=== PATIENT | female | born 1935 | race Caucasian/White ===

== ENCOUNTER → 2016-10-19 | Outpatient (CLI) | payer OTHER ==
[~2016-10-19] MED LIST: ACET-1138 PO; ACET-24 PO; ASPEC81 PO; ATEN-175 PO; CRS/10 PO; FLUT0.15 NAE; ONDA8TAB6 PO; OXYC-106 PO; OXYSR10 PO; PREG100C PO; RXC5 PO; TRIA37.5 PO
[2016-10-19 15:14] LABS: PARTIAL THROMBOPLASTIN RATIO 1.1; PROTHROMBIN TIME (PATIENT) 10.2 SECONDS (9.0-12.0)
[2016-10-20 05:55] LABS: ESTIMATED AVERAGE GLUCOSE 123 mg/dl; HA1C FLAG Normal (Normal)
--- NOTE | 2016-10-29 08:11 | CODING QUERY MEDICAL NECESSITY ---
CQSUPPORTING DIAGNOSIS NEEDED A supporting diagnosis is required for the test/procedure performed on this patient in order for us to be reimbursed by the patient's insurance. Please provide a supporting diagnosis for the following test/procedure listed below next to the test name along with your signature. *If there is no additional diagnosis for this patient that would support the following test/procedure please document that below next to the test/procedure. Test(s)/Procedure(s) that require a supporting diagnosis: DOS 10/19/16 GLYCATED HEMOGLOBIN TEST PROTHROMBIN TIME TEST PTT TEST Provider Signature: Date: Thank you Trista Llanes [facility] Information Management Once completed, please kindly fax back to [phone] For questions please call [phone]
== END | disposition home or self-care (01) ==
LOC: C.LAB 12:21
PROVIDERS: ATTEND Orthopaedic Surgery Sports Medicine
DX: Z01.818 Encounter for other preprocedural examination (principal)

== ENCOUNTER 2016-11-04 04:46 | Inpatient (IN) | payer OTHER ==
[2016-10-12 16:19] VITALS: BMI 24.0
--- NOTE | 2016-11-03 18:55 | HISTORY & PHYSICAL EXAMINATION ---
DATE OF ADMISSION: 11/04/2016 CHIEF COMPLAINT: Chronic left hip pain. HISTORY OF PRESENT ILLNESS: This is a 80-year-old female patient of Dr. Pineda'mirna complaining of chronic left hip pain, longstanding, now progressively getting worse. The patient has been diagnosed with end-stage osteoarthritis per clinical and radiographic exams. She has failed conservative treatment including anti-inflammatories and the use of a cane. She has increased pain with weightbearing activities and her pain does interfere with her activities of daily living. PAST MEDICAL HISTORY: Hypertension, hypercholesterolemia, carpal tunnel syndrome, osteoarthritis, spine problems, sciatica. SOCIAL HISTORY: She was a lifelong smoker, quit in 2007. She is a nonalcohol user. PAST SURGICAL HISTORY: Back surgery x3, hip replacement, hysterectomy, goiter removal, wrist surgery bilaterally. FAMILY HISTORY: Noncontributory. REVIEW OF SYSTEMS: The patient complains of chronic left hip pain. Otherwise, denies any shortness of breath, chest pain, nausea, vomiting or any other joint complaints. MEDICATIONS: Include triamterene/hydrochlorothiazide 37.5/25 daily, atenolol 100 mg daily, Crestor 20 mg daily, Lyrica 100 mg b.i.d., and hydrocodone as needed. ALLERGIES: LATEX. PHYSICAL EXAMINATION: GENERAL: Well-developed, well-nourished 80-year-old female in no acute distress. She is alert and oriented x3 and pleasant. HEENT: Normocephalic, atraumatic. Extraocular motions are intact. Pupils are equal and reactive to light. HEART: Regular rate and rhythm, no murmurs. LUNGS: Clear. ABDOMEN: Soft, nontender, bowel sounds present. EXTREMITIES: Left hip reveals passive range of motion to be painful with log rolling and internal and external rotation at 90/90. She has no flexion contracture. She has 5/5 strength with pain. NEUROLOGIC: Neurovascularly, she is intact in her left lower extremity. DIAGNOSES: Left hip end-stage osteoarthritis with a history of hypertension, hypercholesterolemia, carpal tunnel syndrome, osteoarthritis, spine problems, and sciatica. PLAN: The patient was advised of her diagnosis. Indications, risks, benefits, and postop course have all been reviewed. The patient wishes to proceed with a left total hip arthroplasty. Necessary consent forms, preoperative testing and clearances will be obtained.
[2016-11-04] VITALS (8 sets, daily range): BP systolic 115–178; BP diastolic 63–75; PULSE 55–75; TEMP 36.4–36.7; O2SAT 93–100; Ht 152.4 cm; Wt 56.4 kg
[~2016-11-04] VITALS: Ht 152.4 cm; Wt 56.4 kg
[~2016-11-04 04:46] MED LIST changes: -ACET-24 PO; -ASPEC81 PO; -ONDA8TAB6 PO; -OXYSR10 PO; -RXC5 PO
[2016-11-04] MEDS ORDERED: CeleBREX 200 MG CAP PO SCH (06:00)
[2016-11-04] MEDS ORDERED: LACTATED RINGER'S 1000ML 1,000 ML IV SCH ×2 (06:00)
[2016-11-04] MEDS ORDERED: METOCLOPRAMIDE HCL 10 MG TAB PO SCH (06:00)
[2016-11-04] MEDS ORDERED: LACTATED RINGER'S 1000ML 500 ML IV ONE (06:00)
[2016-11-04] MEDS ORDERED: ACETAMINOPHEN 500 MG TAB PO SCH (06:00)
[2016-11-04] MEDS ORDERED: CEFAZOLIN 1000MG/55 ML D5W 55 ML IV SCH (06:00)
[2016-11-04] MEDS ORDERED: GABAPENTIN 300 MG CAP PO SCH (06:00)
[2016-11-04] MEDS ORDERED: DEXAMETHASONE 4 MG TAB PO SCH (06:00)
[2016-11-04] MEDS ORDERED: FAMOTIDINE 20 MG TAB PO SCH (06:00)
[2016-11-04] MEDS ORDERED: ROPIVACAINE 5MG/ML 30 ML 150 MG, BUPIVACAINE/EPINEPHR 0.5% MPF 30 ML, KETOROLAC TROMETH... INFIL SCH ×6 (06:00)
[2016-11-04] MEDS ORDERED: BUPIVACAINE 0.5 % 5 MG/1 ML PF 10ML VIAL ONE (06:29)
[2016-11-04] MEDS ORDERED: POVIDONE-IODINE OP SOLN 30 ML BTL ONE (06:30)
[2016-11-04] MEDS ORDERED: BACITRACIN 50000 UNIT VIAL ONE (06:30)
[2016-11-04] MEDS ORDERED: ORTHO JOINT ANESTHETIC ONE (06:30)
[2016-11-04] MEDS ORDERED: MIDAZOLAM HCL 1 MG/ML 2ML VIAL ONE (06:37)
[2016-11-04] MEDS ORDERED: FENTANYL CITRATE INJ 50 MCG/1 ML 2 ML VIAL ONE (06:37)
--- NOTE | 2016-11-04 07:16 | History & Physical Bridge Note ---
H&P Re-Evaluation Bridge Note: I have examined the patient, reviewed the History & Physical and in the interval since the performance of the History & Physical I have noted the following changes of clinical significance: No changes noted
[2016-11-04] MEDS: TRANEXAMIC ACID INJ 1,000 MG in SODIUM CHLORIDE 0.9% 100ML 100 ML IV SCH ×2 (07:17→11:22)
[2016-11-04] MEDS ORDERED: HYDROmorphone INJ 2 MG/ML SYR/VIAL IV PRN (07:30)
[2016-11-04] MEDS ORDERED: ATROPINE SULFATE 0.1 MG/ML 5ML SYR IV PRN (07:30)
[2016-11-04] MEDS ORDERED: EpHEDrine SULFATE INJ 50 MG/ML AMP IV PRN (07:30)
[2016-11-04] MEDS ORDERED: ONDANSETRON INJ 2 MG/ML 2 ML VIAL IV PRN ×2 (07:30→10:15)
[2016-11-04] MEDS ORDERED: PHENYLEPHRINE 100MCG/ML 5ML SYR IV PRN (07:30)
[2016-11-04] MEDS ORDERED: PROPOFOL IV EMULSION 10 MG/ML 20 ML VIAL IV ONE (08:33)
[2016-11-04] MEDS ORDERED: LIDOCAINE HCL 2% 2 ML VIAL (20MG/ML) ONE (08:33)
--- NOTE | 2016-11-04 09:46 | [facility] Post Operative Brief Note ---
Immediate Operative Summary Operative Date Nov 04, 2016. 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
[2016-11-04] MEDS ORDERED: BISACODYL 10 MG SUPP PR PRN (10:15)
[2016-11-04] MEDS ORDERED: SOD PHOSPHATE/SOD BIPHOSPHATE ENEMA 132 ML BTL PR PRN (10:15)
[2016-11-04] MEDS ORDERED: FLUTICASONE PROPIONATE NA SPR 16 GM BTL NAE PRN (10:15)
[2016-11-04] MEDS ORDERED: ZOLPIDEM TARTRATE 5 MG TAB PO PRN (10:15)
[2016-11-04] MEDS ORDERED: MAGNESIUM HYDROXIDE SUSP 30 ML UDC PO PRN (10:15)
[2016-11-04] MEDS ORDERED: MoRPHine SULFATE 2 MG/ML CARP IV PRN (10:15)
--- NOTE | 2016-11-04 10:47 | DIAGNOSTIC IMAGING REPORT ---
AP PELVIS, CROSSTABLE LATERAL LEFT HIP History: Left total hip arthroplasty. Degenerative arthritis. Postop. FINDINGS: The patient is status post a left total hip arthroplasty. The hardware is intact. No fracture or dislocation. Skin david and surgical drains are in place. Evidence for prior right total hip arthroplasty. A pessary device is noted. IMPRESSION: Left total hip arthroplasty. No evidence for hardware complication. Electronically signed by: Beau Lenz M.D. 11/04/2016 10:45 AM Dictated Date/Time: 11/04/2016 10:44 AM
[2016-11-04] MEDS ORDERED: HydrALAZINE HCL 20 MG/ML VIAL IV. PRN (11:45)
--- NOTE | 2016-11-04 11:46 | History and Physical ---
History & Physical Date of Service Nov 04, 2016. History & Physical consult done [id number]
--- NOTE | 2016-11-04 12:02 | INTERNAL MEDICINE CONSULTATION ---
DATE OF ADMISSION: 11/04/2016 This is a consultation H&P, 25 minutes. PHYSICIAN REQUESTING CONSULTATION: Dr. Pineda. REASON FOR CONSULTATION: Postop management. HISTORY OF PRESENT ILLNESS: The patient is a 80-year-old white female with a significant medical history of hypertension, dyslipidemia, carpal tunnel syndrome, osteoarthritis, and sciatica, admitted to Dr. Pineda's service because of chronic left hip pain. The patient had left hip procedure done today. The procedure's name is left total hip arthroplasty, repair of abductor tear. The patient is postop now. She is awake, alert, and orientated, pleasant. No complaint. Denied any pain. Denied nausea, vomiting, abdominal pain, diarrhea, or constipation. Denied chest pain, palpitation, lower extremity swelling. Denied cough, sputum, shortness of breath. Denied facial droop, slurry speeches or local weakness. Denied dysuria, urgency and frequencies. Denies skin rashes. PAST MEDICAL HISTORY: Like I mentioned in the above include hypertension, dyslipidemia, carpal tunnel syndrome, osteoarthritis, right hip replacement in the year of 2015, and left hip procedure was done today. SOCIAL HISTORY: Lifelong smoking, quit in the year of 2007. Denied alcohol abuse disorder, denied illicit drug abuse. PAST SURGICAL HISTORY: Include 3 times back surgery, right hip replacement, hysterectomy, goiter removal and wrist surgery. FAMILY HISTORY: Noncontributory. REVIEW OF SYSTEMS: Please see HPI, otherwise 14 points organ system review were negative. MEDICATIONS: Include triamterene/hydrochlorothiazide 37.5/25 p.o. daily, atenolol 100 mg p.o. daily, Crestor 20 mg p.o. daily, Lyrica 100 mg p.o. b.i.d., hydrocodone as needed. ALLERGIES: ALLERGIC TO LATEX. PHYSICAL EXAMINATION: VITAL SIGNS: Temperature is 36.7, pulse 59, respiration rate 18, blood pressure 177/72, and oxygen saturation was 100% on 2 liters. GENERAL: The patient is a white female, look much older than her age, but pleasant, awake, alert and orientated, conversational, follows all commands. HEAD: Normocephalic. EYES: Pupils equal, round responds to light. EARS: Ear was normal. NOSE: Normal. NECK: Supple. Thyroid no enlargement. Trachea midline. HEART: Regular rhythm. S1, S2. LUNGS: Decreased breathing sounds. There were no wheezing, rhonchi or crackles. ABDOMEN: Soft, nontender. Bowel sound was positive. Bilateral CVA was nontender. HIP EVALUATION: Left hip has incisions there. BILATERAL LOWER EXTREMITIES: No swelling. Homans sign was negative. Calf was nontender. There was no clubbing, no cyanosis. SKIN: Has no rashes. NEUROLOGICAL EVALUATION: Cranial nerve II-XII was intact. There were no local deficits. LABORATORY STUDIES: There was no recent lab. PT/INR on 11/19/2016 was 10/1. A1c was 5.9. Blood glucose was 123. ASSESSMENT AND PLAN: A 80-year-old white female admitted to Dr. Pineda's service because of the right hip osteoarthritis which is end stage. The patient had a procedure done. Today is postoperative 0 of left total hip arthroplasty. 1. Hypertension. 2. Dyslipidemia. 3. History of carpal tunnel syndrome. 4. History of osteoarthritis. 5. Sciatica. PLAN: 1. Postop management of pain management, activities, PT/OT, DVT prophylaxis, and discharge plan, will be per primary team. 2. For the hypertension, the patient currently has accelerated hypertension. We will continue current home medication which was ordered by the primary team, I ordered hydralazine 20 mg every 8 hours as needed for SBP more than 180 or DBP more than 100. 3. For dyslipidemia, we will continue home medication. Thank you for the chance to involving in the care of the patient. We will continue to follow up while patient in the hospital. HANNAH
[2016-11-04] MEDS: D5W AND 1/2NSS + 20MEQ KCL 1,000 ML IV SCH ×2 (12:07→20:59)
--- NOTE | 2016-11-04 13:13 | Anesthesiology Progress Note ---
Anesthesia Post Op Note Date & Time Nov 04, 2016 at 13:13 Vital Signs Pain Intensity: 0.0 Vital Signs Past 12 Hours Date Time Temp Pulse Resp B/P (MAP) Pulse Ox O2 Delivery O2 Flow Rate FiO2 11/04/16 11:47 55 19 178/75 (109) 99 Nasal Cannula 2.0 11/04/16 11:15 59 18 177/72 (107) 100 Nasal Cannula 2.0 11/04/16 10:45 99 Nasal Cannula 2.0 11/04/16 10:45 36.7 60 16 154/73 (100) 99 Nasal Cannula 2.0 11/04/16 10:30 36.4 57 17 155/61 100 Nasal Cannula 2 11/04/16 10:20 66 17 167/56 100 Nasal Cannula 2 11/04/16 10:10 57 16 104/86 100 Oxymask 8 11/04/16 10:02 37.1 56 16 169/78 100 Oxymask 8 11/04/16 05:41 36.6 61 20 172/63 97 Room Air Notes Mental Status: alert / awake / arousable, participated in evaluation Pt Amnestic to Procedure: Yes Nausea / Vomiting: adequately controlled Pain: adequately controlled Airway Patency, RR, SpO2: stable & adequate BP & HR: stable & adequate Hydration State: stable & adequate Anesthetic Complications: no major complications apparent
[2016-11-04] MEDS: ACETAMINOPHEN 500 MG TAB PO SCH ×2 (13:34→21:44)
[2016-11-04] MEDS: CEFAZOLIN IV 1,000 MG in DEXTROSE 5% 50ML 50 ML IV SCH ×2 (15:28→23:25)
[2016-11-04] MEDS: OXYCODONE HCL IR 5 MG TAB (IMMEDIATE RELEASE) PO PRN ×2 (15:28→19:39)
--- NOTE | 2016-11-04 17:15 | OPERATIVE REPORT ---
DATE OF OPERATION: 11/04/2016 INDICATION FOR PROCEDURE: A 80-year-old female with severe osteoarthritis in her left hip. She also had severe osteoarthritis in her right hip and she had a right hip replacement. She is comfortable from the right hip replacement and now presents for the left hip replacement at this time. Radiographs demonstrate she has [id number] in the left hip joint with femoral neck osteophytes and superior lateral subluxation. PREOPERATIVE DIAGNOSIS: End-stage osteoarthritis of the left hip. 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 PROCEDURE: Left total hip arthroplasty including repair of a chronic gluteus medius abductor tear and trochanteric bursectomy. SURGEON: Dr. Pineda. HORTICULTURAL FARMER: LORIN Rabago. ANESTHESIA: Spinal and IV sedation and Orthomix. OPERATIVE PROCEDURE: The patient was taken to the operating room, anesthetized under anesthesia as dictated. She was placed supine on the operating room table. She was placed onto a sacral pad. This was placed under her pelvis. A towel roll was placed under her lumbar spine for support. A foot roll was placed under foot to flex the knee 90 degrees and hip 60 degrees. The bed was placed in some Trendelenburg to drain the pelvic veins and tilted slightly to the right to help expose the left hip. Exam demonstrated a flexion contracture of the hip, but she had good flexion of the hip otherwise. She had limited rotation internally just about 10-20 degrees. She had some relative lengthening of the right leg compared to the left and some of this was due to pelvic obliquity due to her significant lumbar scoliosis. Her left hip was then sterilely prepped and draped with ChloraPrep. A Hardinge type approach was performed to the left hip. A longitudinal incision was made over the left hip. Skin was incised sharply. Subcutaneous flaps were elevated. An incision was made through the fascia naveed and the gluteus richard fascia was split proximally. This revealed a significant marked scar trochanteric bursitis, a large U-shaped gluteus medius tear. There was just about 4 mm of the medius attached at the vastus lateralis attachment site area and a large U-shaped tear all the way up to the tip of the trochanter and was retracted anteriorly and somewhat superiorly. The minimus was still intact. Posterior medius was sagged posteriorly and stretched out. The thickened trochanteric bursa was resected. The scar tissue between the gluteus fascia and fascia naveed and the chronic medius tear was freed up so we could mobilize the tendon for repair. Then just posterior to the tear, the medius was split longitudinally and the vastus lateralis was split about 3 cm distal to the tear and then a muscular capsular flap was elevated off the hip, splitting the minimus and reflected off the capsule first dividing the capsule and then releasing the rest the medius off the anterior trochanter. This revealed a severely arthritic hip with large femoral neck osteophytes. The hip was dislocated with flexion and external rotation. The CombiMatrix Accolade II total hip arthroplasty system was used for the stem and the Trident PSL cup was used. The cutting guide for the femoral neck cut was made in neutral anteversion. Femoral head was measured at about 50 mm diameter. All femoral neck osteophytes were resected around the neck. Then we released the anterior capsule and exposed the acetabulum with acetabular retractors, resected the acetabular labrum, resected some inferior bone spurs and soft tissue in the acetabular fossa was resected. The first reamer used was the 46 mm reamer. We reamed up in sequential increments up to a 52 mm reamer which had good fit and fill. We did a trial reduction. I then we implanted the 52 mm E PSL Trident shell after copiously irrigating the acetabulum. The shell was placed in approximately 45 degrees of abduction and 15 degrees of anteversion. We tried to match the patient's anatomy. The pressfit was tight. The two additional screws, a 30 x 6.5 mm were placed in the posterior superior quadrant for rotational fixation and then the Trident X3 poly 10 degree 36 mm E liner was placed in the posterior high wall posteriorly. This was impacted into position and checked for tightness and then we proceeded to address the femur. First, a box osteotome was used, a canal reamer, sequential broaches up to a size 4, which had appropriate fit and fill, we used 132 degree neck angle based on preoperative templating and we used a -5 neck trial which we placed in the opposite hip and felt this was appropriate stability. We did a trial reduction and the hip was stable through full range of motion including flexion, adduction and internal rotation, extension, external rotation and adduction. There was no shuck noted and the trials were then removed and then the canal was irrigated copiously. We did inject the anesthetic cocktail around the hip capsule. Then we went ahead and irrigated that out with antibiotic solution with bacitracin. Then we went ahead and inserted the Accolade II size 4 tapered stem with a 132 degree neck angle until fully seated tight pressfit. Then we placed on the -5 36 mm Biolox ceramic femoral head. Then we reduced this to the acetabulum, checked leg lengths which were equal. Stability was noted to be stable. After copious irrigation, we did a Betadine soak. Then went ahead and repaired the hip abductor tear. We used three #5 FiberWire sutures 2 from lateral to medial and 1 from inferior to superior. We used Martin-Price suture technique through the medius tendon and also repaired the minimus with [id number] #1 Vicryl sutures prior to repairing the medius. After the FiberWire sutures were tied, we went ahead and did further repair with soft tissue fixation where we could with [id number] #2 FiberWire sutures and the vastus lateralis was closed with [id number] #1 Vicryl sutures. We assessed the repair to be secured through full passive range of motion of the hip and then after copious irrigation, the vastus lateralis and gluteus richard fascia was closed with hbavuh-dm-symia #1 Vicryl sutures. Subcutaneous tissue closed with interrupted 2-0 Vicryl sutures and large #2 Vicryls for the large fatty area requiring more space closure. Skin was closed with david. Silverlon dressing was placed. We did closure over 2 Hemovac drains. The patient tolerated the procedure well. LORIN Rabago was my airline pilot/first officer and he functioned as airline pilot/first officer for the entire procedure. He assisted in soft tissue retraction, instrument management, leg positioning and performed the outer fascial closure, subcutaneous closure, and skin closure and will participate in postoperative care of the patient. I attest to the content of the Intraoperative Record and any orders documented therein. Any exception s are noted below.
[2016-11-04] MEDS: PREGABALIN 100 MG CAP PO SCH (20:58)
[2016-11-04] MEDS: OXYCODONE HCL 10 MG TABCR (OXYCONTIN) PO SCH (20:58)
[2016-11-04] MEDS: ASPIRIN 81 MG ECTAB PO SCH (20:59)
[2016-11-04] MEDS: DOCUSATE SODIUM 100 MG CAP PO SCH (20:59)
[2016-11-04] MEDS: TRAMADOL HCL 50 MG TAB PO PRN (23:26)
[2016-11-05 03:05] VITALS: BP 119/64; PULSE 66; TEMP 36.7; O2SAT 97
[2016-11-05] MEDS: ACETAMINOPHEN 500 MG TAB PO SCH ×3 (05:36→21:30)
[2016-11-05 06:13] LABS: COMPLETE YES; HEMATOCRIT 29.6 % (37-47); IG% 0.3 %; LYMPH % 10.6 %; LYMPH ABS # 1.13 K/uL (1.2-3.4); MEAN CELL VOLUME 91.4 fL (80-100); MEAN CORPUSCULAR HEMOGLOBIN 30.2 pg (25-34); MEAN CORPUSCULAR HGB CONC 33.1 g/dl (32-36); MEAN PLATELET VOLUME 10.1 fL (7.4-10.4); NEUT % 79.1 %; PLATELET COUNT 178 K/uL (130-400); RED BLOOD COUNT 3.24 M/uL (4.2-5.4); WHITE BLOOD COUNT 10.69 K/uL (4.8-10.8)
[2016-11-05 06:52] LABS: BUN/CREATININE RATIO 22.9 (10-20); CALCIUM 8.8 mg/dl (8.5-10.1); CREATININE 0.79 mg/dl (0.60-1.20); POTASSIUM 3.9 mmol/L (3.5-5.1)
[2016-11-05 07:15] VITALS: BP 129/69; PULSE 63; TEMP 36.7; O2SAT 94
--- NOTE | 2016-11-05 08:28 | Orthopedic Progress Note ---
Orthopedic Progress Note Date of Service Nov 05, 2016. Subjective Post OP Day: 1 Reports: feeling well, pain controlled w PO medications, Denies: complaints, chest pain, SOB, nausea / vomiting, light headedness, calf pain Objective calves soft nontender, N/V intact, capillary refill less than 2 sec., dressing C /D/I, A&O x3, toes mobile Date Time Temp Pulse Resp B/P (MAP) Pulse Ox O2 Delivery O2 Flow Rate FiO2 11/05/16 07:20 Room Air 11/05/16 07:15 36.7 63 18 129/69 (89) 94 Room Air 11/05/16 03:05 36.7 66 16 119/64 (82) 97 Room Air 11/04/16 23:25 Room Air 11/04/16 23:00 36.6 75 18 115/65 (82) 93 Room Air 11/04/16 15:30 Room Air 11/04/16 15:12 36.6 66 18 152/71 (98) 94 Room Air 11/04/16 13:40 36.4 65 17 139/67 (91) 95 Room Air 11/04/16 12:45 36.5 67 16 125/70 (88) 95 Nasal Cannula 2.0 11/04/16 11:47 55 19 178/75 (109) 99 Nasal Cannula 2.0 11/04/16 11:15 59 18 177/72 (107) 100 Nasal Cannula 2.0 11/04/16 10:45 99 Nasal Cannula 2.0 11/04/16 10:45 36.7 60 16 154/73 (100) 99 Nasal Cannula 2.0 11/04/16 10:30 36.4 57 17 155/61 100 Nasal Cannula 2 11/04/16 10:20 66 17 167/56 100 Nasal Cannula 2 11/04/16 10:10 57 16 104/86 100 Oxymask 8 11/04/16 10:02 37.1 56 16 169/78 100 Oxymask 8 Laboratory Results 24 Hours: Test 11/05/16 05:54 White Blood Count 10.69 K/uL Red Blood Count 3.24 M/uL Hemoglobin 9.8 g/dL Hematocrit 29.6 % Mean Corpuscular Volume 91.4 fL Mean Corpuscular Hemoglobin 30.2 pg Mean Corpuscular Hemoglobin Concent 33.1 g/dl Platelet Count 178 K/uL Mean Platelet Volume 10.1 fL Neutrophils (%) (Auto) 79.1 % Lymphocytes (%) (Auto) 10.6 % Monocytes (%) (Auto) 10.0 % Eosinophils (%) (Auto) 0.0 % Basophils (%) (Auto) 0.0 % Neutrophils # (Auto) 8.46 K/uL Lymphocytes # (Auto) 1.13 K/uL Monocytes # (Auto) 1.07 K/uL Eosinophils # (Auto) 0.00 K/uL Basophils # (Auto) 0.00 K/uL Assessment & Plan Assessment: POD #1, Left ABDOUL, Abductor repair Plan: PT/ OT- NO abduction exercises, walker for 6 weeks DVT proph- ASA D/C planning- Home w HH likely Fri As per medicine. Inhouse Planning Pain Management: Oxycontin, Morphine, PO Tylenol, Oxy IR DVT Prophylaxis: TEDs, SCDs, ASA Discharge Planning Discharge Planning: home with home health Pain Management: Oxycontin, PO Tylenol, Oxy IR DVT Prophylaxis: TEDs, ASA Therapy: Physical Therapy, Occupational Therapy
[2016-11-05] MEDS: DOCUSATE SODIUM 100 MG CAP PO SCH ×2 (08:30→20:48)
[2016-11-05] MEDS: PANTOprazole SOD 40 MG TAB PO SCH (08:30)
[2016-11-05] MEDS: ASPIRIN 81 MG ECTAB PO SCH ×2 (08:30→20:48)
[2016-11-05] MEDS: D5W AND 1/2NSS + 20MEQ KCL 1,000 ML IV SCH (08:31)
[2016-11-05] MEDS: TRIAMTERENE/HCTZ 37.5/25MG CAP PO SCH (08:31)
[2016-11-05] MEDS: ROSUVASTATIN CALCIUM 10 MG TAB PO SCH (08:31)
[2016-11-05] MEDS: MULTIVITAMIN TAB PO SCH (08:31)
[2016-11-05] MEDS: PREGABALIN 100 MG CAP PO SCH ×2 (08:34→20:48)
[2016-11-05] MEDS: OXYCODONE HCL 10 MG TABCR (OXYCONTIN) PO SCH ×2 (08:34→20:48)
--- NOTE | 2016-11-05 11:06 | Anesthesiology Progress Note ---
Anesthesia Post Op Note Date & Time Nov 05, 2016 at 11:06 Vital Signs Pain Intensity: 6.0 Vital Signs Past 12 Hours Date Time Temp Pulse Resp B/P (MAP) Pulse Ox O2 Delivery O2 Flow Rate FiO2 11/05/16 07:20 Room Air 11/05/16 07:15 36.7 63 18 129/69 (89) 94 Room Air 11/05/16 03:05 36.7 66 16 119/64 (82) 97 Room Air 11/04/16 23:25 Room Air Notes Mental Status: alert / awake / arousable, participated in evaluation Pt Amnestic to Procedure: Yes Nausea / Vomiting: adequately controlled Pain: adequately controlled Airway Patency, RR, SpO2: stable & adequate BP & HR: stable & adequate Hydration State: stable & adequate Neuraxial Anesthesia: was administered, sensory block resolved Anesthetic Complications: no major complications apparent
[2016-11-05] MEDS: OXYCODONE HCL IR 5 MG TAB (IMMEDIATE RELEASE) PO PRN (11:21)
[2016-11-05] MEDS: TRAMADOL HCL 50 MG TAB PO PRN ×2 (13:02→20:51)
--- NOTE | 2016-11-05 13:46 | Hospitalist Progress Note ---
Hospitalist Progress Note Date of Service Nov 05, 2016. (Chichi Becerra ., LORIN-C) Subjective Pt evaluation today including: conversation w/ patient, physical exam, chart review, lab review, review of inpatient medication list Pain: Left hip pain PO Intake: Tolerating PO diet Voiding: no voiding problems Patient reports feeling well. She states that she has some left hip pain after doing physical therapy but this is tolerable. She did have some dyspnea on exertion when she started physical therapy, but during her second time around the hallway her breathing felt better. She denies any shortness of breath at rest. The patient is tolerating a PO diet well and urinating without difficulty. She is passing gas and had a bowel movement yesterday. The patient complains of numbness/tingling in her feet, but this is chronic and no worse than usual. The patient denies fevers, chills, sweats, chest pain, palpitations, claudication, cough, wheezing, shortness of breath at rest, nausea , vomiting, abdominal pain, dysuria, hematuria, urinary retention, paralysis, weakness, acute numbness and tingling. Additional Comments: See HPI for pertinent positives and negatives. All other systems reviewed and negative. (Chichi Becerra ., PA-C) Objective Vital Signs Date Time Temp Pulse Resp B/P (MAP) Pulse Ox O2 Delivery O2 Flow Rate FiO2 11/05/16 07:20 Room Air 11/05/16 07:15 36.7 63 18 129/69 (89) 94 Room Air 11/05/16 03:05 36.7 66 16 119/64 (82) 97 Room Air 11/04/16 23:25 Room Air 11/04/16 23:00 36.6 75 18 115/65 (82) 93 Room Air 11/04/16 15:30 Room Air 11/04/16 15:12 36.6 66 18 152/71 (98) 94 Room Air 11/04/16 13:40 36.4 65 17 139/67 (91) 95 Room Air (Chichi Becerra ., LORIN-C) Physical Exam Notes: General appearance: Well-developed, well-nourished, no apparent distress Head: Normocephalic, atraumatic Eyes: Normal inspection, PERRL, EOMI ENT: Normal ENT inspection, hearing grossly normal, pharynx normal Neck: Supple, no JVD, trachea midline Respiratory/Chest: Lungs clear to auscultation, normal breath sounds, no respiratory distress Cardiovascular: Regular rate & rhythm, no gallop, no murmur Abdomen/GI: Normal bowel sounds, non-tender, soft Extremities/Musculoskeletal: +Left hip covered in dressing with drain in place. Normal inspection, no calf tenderness, no pedal edema Neurological/Psych: Alert, normal mood/affect, oriented x 3 Skin: Normal color, warm/dry, no rash (Chichi Becerra ., LORIN-C) Laboratory Results Last 24 Hours Test 11/05/16 05:54 White Blood Count 10.69 K/uL Red Blood Count 3.24 M/uL Hemoglobin 9.8 g/dL Hematocrit 29.6 % Mean Corpuscular Volume 91.4 fL Mean Corpuscular Hemoglobin 30.2 pg Mean Corpuscular Hemoglobin Concent 33.1 g/dl Platelet Count 178 K/uL Mean Platelet Volume 10.1 fL Neutrophils (%) (Auto) 79.1 % Lymphocytes (%) (Auto) 10.6 % Monocytes (%) (Auto) 10.0 % Eosinophils (%) (Auto) 0.0 % Basophils (%) (Auto) 0.0 % Neutrophils # (Auto) 8.46 K/uL Lymphocytes # (Auto) 1.13 K/uL Monocytes # (Auto) 1.07 K/uL Eosinophils # (Auto) 0.00 K/uL Basophils # (Auto) 0.00 K/uL RDW Standard Deviation 42.6 fL RDW Coefficient of Variation 12.7 % Immature Granulocyte % (Auto) 0.3 % Immature Granulocyte # (Auto) 0.03 K/uL Sodium Level 141 mmol/L Potassium Level 3.9 mmol/L Chloride Level 108 mmol/L Carbon Dioxide Level 27 mmol/L Anion Gap 6.0 mmol/L Blood Urea Nitrogen 18 mg/dl Creatinine 0.79 mg/dl Est Creatinine Clear Calc Drug Dose 46.2 ml/min Estimated GFR () 83.1 Estimated GFR (Non- 71.7 BUN/Creatinine Ratio 22.9 Random Glucose 132 mg/dl Calcium Level 8.8 mg/dl (Chichi Becerra ., PA-C) Assessment and Plan 80 y/o female with a history of HTN, HLD, sciatica and peripheral neuropathy who presents s/p L ABDOUL with Dr. Pineda on 11/04 for medical management. S/p L ABDOUL--POD #1 -Pain management, DVT prophylaxis, and PT/OT as per primary team -AVSS -IVF d/c'd, renal function stable HTN--stable, accelerated HTN resolved -BP WNL. Last recorded 129/69 -Continue atenolol 100 mg PO qd and Dyazide 37.5/25 mg PO qd HLD -Continue Crestor 20 mg PO qd Sciatica, peripheral neuropathy--stable -Continue Lyrica 100 mg PO BID Code Status -Level I, FULL RESUSCITATION STATUS Thank you for this consultation. We will continue to follow. (Chichi Becerra, GIULIANA) Reviewed: Pt Seen/Exam by Me (Lety Gupta MD) History Physician Cafeteria Worker Supervision Note: I interviewed and examined the patient. Discussed with LORIN Becerra and agree with findings and plan as documented in the note. Any exceptions or clarifications are listed here: Pt feeling well. Denies any SOB at rest but did have some earlier with ambulating. She smoked for about 30 yrs and quit 10 yrs ago. Denies cough, sputum production,wheezing now or chronically. Vitals reviewed, mild hypoxia RRR no mgr Lungs with rhonchi in anterior chest as well as crackles at left base and left middle lung field Abd +BS soft NT, ND Ext no calf tenderness, cn move bilateral feet/ankles 80 yo female here for Left ABDOUL. With some crackles and rhonchi on exam, mild hypoxia, and +BARNETT. Hgb down to 9.8 from preop labs hgb 12.5. Suspect may have component of COPD with mucus plugging as cause of rhonchi and crackles--> ordered albuterol nebs for prn use BARNETT maybe from possible COPD and anemia of acute blood loss with 3 gram drop in hgb -check CBC in AM Documented By: Lety Gupta (Lety Gupta MD)
[2016-11-05 15:59] VITALS: BP 92/54; PULSE 70; TEMP 36.8; O2SAT 94
[2016-11-05 16:04] VITALS: BP 107/55
[2016-11-05] MEDS ORDERED: ALBUTEROL 0.083% NEBU SOLN 3 ML VIAL INH PRN (22:45)
[2016-11-05 23:19] VITALS: BP 130/66; PULSE 69; TEMP 36.6; O2SAT 96
[2016-11-06] MEDS: TRAMADOL HCL 50 MG TAB PO PRN ×2 (01:00→07:54)
[2016-11-06] MEDS: ACETAMINOPHEN 500 MG TAB PO SCH (05:52)
[2016-11-06 06:01] VITALS: BP 135/68; PULSE 73; TEMP 36.7; O2SAT 94
[2016-11-06 06:39] LABS: BASO % 0.3 %; BASO ABS # 0.02 K/uL (0-0.2); COMPLETE YES; EOS % 2.3 %; HEMATOCRIT 29.3 % (37-47); IG% 0.3 %; LYMPH % 21.3 %; LYMPH ABS # 1.57 K/uL (1.2-3.4); MEAN CELL VOLUME 92.1 fL (80-100); MEAN CORPUSCULAR HEMOGLOBIN 30.5 pg (25-34); MEAN CORPUSCULAR HGB CONC 33.1 g/dl (32-36); MEAN PLATELET VOLUME 10.2 fL (7.4-10.4); MONO % 16.5 %; NEUT % 59.3 %; PLATELET COUNT 188 K/uL (130-400); RED BLOOD COUNT 3.18 M/uL (4.2-5.4); WHITE BLOOD COUNT 7.38 K/uL (4.8-10.8)
[2016-11-06 07:13] LABS: BUN/CREATININE RATIO 23.9 (10-20); CALCIUM 8.7 mg/dl (8.5-10.1); CREATININE 0.77 mg/dl (0.60-1.20)
[2016-11-06] MEDS: ROSUVASTATIN CALCIUM 10 MG TAB PO SCH (07:50)
[2016-11-06] MEDS: DOCUSATE SODIUM 100 MG CAP PO SCH (07:50)
[2016-11-06] MEDS: TRIAMTERENE/HCTZ 37.5/25MG CAP PO SCH (07:51)
[2016-11-06] MEDS: MULTIVITAMIN TAB PO SCH (07:51)
[2016-11-06] MEDS: ASPIRIN 81 MG ECTAB PO SCH (07:51)
[2016-11-06] MEDS: PREGABALIN 100 MG CAP PO SCH (07:51)
[2016-11-06] MEDS: OXYCODONE HCL 10 MG TABCR (OXYCONTIN) PO SCH (07:52)
[2016-11-06] MEDS: PANTOprazole SOD 40 MG TAB PO SCH (07:52)
--- NOTE | 2016-11-06 08:37 | Orthopedic Progress Note ---
Orthopedic Progress Note Date of Service Nov 06, 2016. Subjective Post OP Day: 2 Reports: feeling well, pain controlled w PO medications, Denies: complaints, chest pain, SOB, nausea / vomiting, light headedness, calf pain Objective calves soft nontender, N/V intact, hip located, capillary refill less than 2 sec., dressing C/D/I, A&O x3, toes mobile Silverlon in tact. Date Time Temp Pulse Resp B/P (MAP) Pulse Ox O2 Delivery O2 Flow Rate FiO2 11/06/16 07:55 Room Air 11/06/16 06:01 36.7 73 16 135/68 (90) 94 Room Air 11/06/16 00:20 Room Air 11/05/16 23:19 36.6 69 18 130/66 (87) 96 Room Air 11/05/16 16:04 107/55 (72) 11/05/16 15:59 36.8 70 16 92/54 (67) 94 Room Air 11/05/16 15:25 Room Air Laboratory Results 24 Hours: Test 11/06/16 06:14 White Blood Count 7.38 K/uL Red Blood Count 3.18 M/uL Hemoglobin 9.7 g/dL Hematocrit 29.3 % Mean Corpuscular Volume 92.1 fL Mean Corpuscular Hemoglobin 30.5 pg Mean Corpuscular Hemoglobin Concent 33.1 g/dl Platelet Count 188 K/uL Mean Platelet Volume 10.2 fL Neutrophils (%) (Auto) 59.3 % Lymphocytes (%) (Auto) 21.3 % Monocytes (%) (Auto) 16.5 % Eosinophils (%) (Auto) 2.3 % Basophils (%) (Auto) 0.3 % Neutrophils # (Auto) 4.38 K/uL Lymphocytes # (Auto) 1.57 K/uL Monocytes # (Auto) 1.22 K/uL Eosinophils # (Auto) 0.17 K/uL Basophils # (Auto) 0.02 K/uL Assessment & Plan Assessment: POD #2, Left ABDOUL, Abductor repair Plan: PT/ OT- NO abduction exercises, walker for 6 weeks DVT proph- ASA D/C planning- Home w HH today As per medicine. Inhouse Planning Pain Management: Oxycontin, Morphine, PO Tylenol, Oxy IR DVT Prophylaxis: TEDs, SCDs, ASA Discharge Planning Discharge Planning: home with home health Pain Management: Oxycontin, PO Tylenol, Oxy IR DVT Prophylaxis: TEDs, ASA Therapy: Physical Therapy, Occupational Therapy
[2016-11-06] MEDS ORDERED: RXC5 PO (08:40)
[2016-11-06] MEDS ORDERED: ASPEC81 PO (08:40)
[2016-11-06] MEDS ORDERED: ONDA8TAB6 PO (08:40)
[2016-11-06] MEDS ORDERED: OXYSR10 PO (08:40)
[2016-11-06] MEDS ORDERED: ACET-24 PO (08:40)
--- NOTE | 2016-11-06 08:42 | Discharge Instructions ---
Discharge Instructions Date of Service Nov 06, 2016. Admission Reason for Admission: Left Hip Degenerative Joint Disease Discharge Discharge Diagnosis / Problem: Left ABDOUL Discharge Goals Goal(s): Improve function Activity Recommendations Activity Limitations: as noted below . Instructions / Follow-Up Instructions / Follow-Up ACTIVITY RECOMMENDATIONS: SELF CARE INSTRUCTIONS AFTER TOTAL HIP REPLACEMENT Until the incision and soft tissues around your hip have healed, there is a possibility that the hip prosthesis could dislocate. A. Observe the following precautions to prevent dislocation: 1. Don't bend your hip greater than 90 degrees. 2. Avoid crossing your legs or ankles while standing or lying. 3. Sit with your feet placed 6 inches apart. 4. When sitting, keep your knees below your hips. Sit on a firm surface, avoid deep, soft chairs and couches. Use an elevated toilet seat in the bathroom. 5. Don't bend over at the waist. Use a long handled shoehorn and a sock aid to help you put on your shoes and socks. A area coordinator can help you cotton picker objects that are too high or too low to reach. 6. Keep car riding to a minimum for at least one month after surgery. B. Your balance may be shaky for a while. Use crutches or a walker until directed by your doctor. C. Use hand rails when walking on stairs. D. Wear low heeled shoes with non-slip soles. E. Be sure that your floors are free of things that could trip you - throw rugs , electrical cords, small objects. Avoid wet and waxed floors, especially with crutches and canes. F. Try to walk several times a day with rest periods between. G. Continue with all the exercises taught to you in the hospital. Again, make walking a part of your daily routine. SPECIAL CARE INSTRUCTIONS: VERY IMPORTANT TO READ AND REVIEW A. You may still be at risk for phlebitis and blood clots. 1. Wear surgical stockings (TIAGO hose) for 2 weeks after surgery to improve circulation and reduce swelling. 2. Take Aspirin 81mg twice daily for 4 weeks or as directed by your doctor. This is your blood thinner. 3. High risk patients may be prescribed a stronger blood thinner if necessary. 4. If you are on Coumadin normally, your family doctor/electronics warfare technician should monitor your blood work. Expect a phone call the day of or the day after bloodwork is drawn to adjust your dosage. B. You must take antibiotics before having dental work, bladder, bowel and other surgery. Your doctor will provide you with a permanent card to carry describing precautions. C. Call [facility] if you have a fever, redness or swelling around the incision, cloudy drainage from incision, or sudden increase in pain in your hip, not relieved by your regular pain medication. D. Please call the office at if you have any concerns or questions about your operation or recovery. * YOU MAY SHOWER, NO TUB BATHS UNTIL CLEARED BY YOUR DOCTOR. * WEAR TIAGO HOSE 20 HOURS PER DAY FOR 2 WEEKS. * YOU SHOULD USE A WALKER OR CRUTCHES FOR 2-4 WEEKS. THIS WILL HELP PREVENT STRAIN ON YOUR HIP MUSCLE AND ALLOW IT TO HEAL PROPERLY. YOU MAY WEAN TO A CANE TOLERATED. * MOST PATIENTS WILL HAVE HOME NURSING FOR THERAPY. IF YOU DECIDE TO DO OUTPATIENT PHYSICAL THERAPY, PLEASE SCHEDULE THIS 3 TIMES PER WEEK. * YOU MAY HAVE A LARGE, BAND-AME LIKE DRESSING (SILVERON). THIS WILL REMAIN ON YOUR INCISION FOR 7 DAYS, THEN CAN BE REMOVED. IF INCISION IS LEAKING THROUGH DRESSING, PLEASE CALL THE OFFICE . FOLLOW UP VISIT: If appointment is not already scheduled: Please call [facility] to make a follow-up appointment for 2 weeks after your surgery at . Current Hospital Diet Patient's current hospital diet: Regular Diet Discharge Diet Recommended Diet: Regular Diet Procedures Procedures Performed: Left Total Hip Arthroplasty,repair of abductor tear Pending Studies Studies pending at discharge: no Laboratory Results Hemoglobin A1c Test 10/19/16 12:48 Range/Units Estimated Average Glucose 123 mg/dl Hemoglobin A1c 5.9 H 4.5-5.6 % Medical Emergencies . Who to Call and When: Medical Emergencies: If at any time you feel your situation is an emergency, please call 911 immediately. . Non-Emergent Contact Non-Emergency issues call your: Primary Care Provider . "Provider Documentation" section prepared by Fabio Tirado. . VTE Core Measure Inpt VTE Proph given/why not?: Other Anticoagulation (asa), T.E.DRick Stockbirgit, SCD's [place] Drug Monitoring Program Search Results: patient reviewed within database, no issues identified
[2016-11-06 08:57] VITALS: BP 135/68; PULSE 73; TEMP 36.7; O2SAT 94
--- NOTE | 2016-11-19 12:57 | DISCHARGE SUMMARY ---
This is a 80-year-old female patient of Dr. Pineda's complaining of chronic left hip pain, longstanding, now progressively getting worse. The patient failed conservative treatment and elected to proceed with a left total hip arthroplasty. PAST MEDICAL HISTORY: Hypertension, hypercholesterolemia, carpal tunnel syndrome, osteoarthritis, spine problems and sciatica. POSTOPERATIVE COURSE: The patient underwent a left total hip arthroplasty on 11/04/2016. She was followed closely with DVT prophylaxis in the form of aspirin, physical therapy, pain control and medical consultation. The patient did well postoperatively and was discharged home with home health services on postoperative day #2. PHYSICAL EXAMINATION: LEFT HIP incision Silverlon dressing was clean, dry and intact. There was no redness or drainage. She had no calf tenderness. Negative Homans sign. Neurologically and neurovascularly she was intact in her left lower extremity. DIAGNOSES: Status post left total hip arthroplasty with a history of hypertension, hypercholesterolemia, carpal tunnel syndrome, osteoarthritis, spine problems and sciatica. PLAN: The patient was discharged home with home health services. She will continue her preadmission medications with the addition of pain medications. She will continue aspirin twice daily for DVT prophylaxis and follow up with Dr. Pineda as scheduled as an outpatient.
== END 2016-11-06 09:26 | disposition home health service (06) | DRG 470 ==
LOC: C.ACU 04:46 → C.3E 07:10 → ENRESERV 10:22
PROVIDERS: ADMIT Orthopaedic Surgery Sports Medicine; ATTEND Orthopaedic Surgery Sports Medicine
PROC: 0SRB03Z Replacement of Left Hip Joint with Ceramic Synthetic Substitute, Open Approach (ICD-10-PCS; principal; 2016-11-04 07:00)
PROC: 0LQK0ZZ Repair Left Hip Tendon, Open Approach (ICD-10-PCS; principal; 2016-11-04 07:00)
DX: M16.12 Unilateral primary osteoarthritis, left hip (principal); D62 Acute posthemorrhagic anemia; S76.012A Strain of muscle, fascia and tendon of left hip, initial encounter; M70.62 Trochanteric bursitis, left hip; I10 Essential (primary) hypertension; E78.5 Hyperlipidemia, unspecified; M54.30 Sciatica, unspecified side; G62.9 Polyneuropathy, unspecified; J44.9 Chronic obstructive pulmonary disease, unspecified; G56.00 Carpal tunnel syndrome, unspecified upper limb; M41.9 Scoliosis, unspecified; X58.XXXA Exposure to other specified factors, initial encounter; Z96.641 Presence of right artificial hip joint; Z87.891 Personal history of nicotine dependence; Z91.040 Latex allergy status